=== PATIENT | female | born 1990 | race Caucasian/White ===

== ENCOUNTER 2017-10-12 13:37 | Outpatient (CLI) | payer OTHER, BC ==
[~2017-10-12] VITALS: Ht 162.6 cm; Wt 80.0 kg
[2017-10-12 14:58] LABS: MICROSCOPIC INDICATED
[2017-10-12 15:34] VITALS: BP 124/59
[2017-10-12] MEDS ORDERED: PREN1TAB60 PO (15:46)
== END 2017-10-12 16:17 | disposition home or self-care (01) ==
LOC: LDOP 13:37 → MERGE 13:37 → LDOP 16:17
PROVIDERS: ATTEND Obstetrics & Gynecology
DX: O36.8130 Decreased fetal movements, third trimester, not applicable or unspecified (principal); O30.033 Twin pregnancy, monochorionic/diamniotic, third trimester; Z3A.18 18 weeks gestation of pregnancy
CPT/HCPCS: 59025; 76810; 76815; 81001; 87086; 99201; G0463

== ENCOUNTER 2017-12-28 11:04 | Outpatient (CLI) | payer OTHER, BC ==
[~2017-12-28] VITALS: Ht 160 cm; Wt 92.0 kg
[~2017-12-28 11:04] MED LIST: PREN1TAB60 PO
[2017-12-28 11:47] LABS: MICROSCOPIC INDICATED
[2017-12-28] MEDS ORDERED: NITROFURANTOIN (MACROBID) 100 MG CAPSULE ONE (12:57)
[2017-12-28] MEDS ORDERED: NITROFURANTOIN (MACROBID) 100 MG CAPSULE PO ONE (13:00)
== END 2017-12-28 13:14 | disposition home or self-care (01) ==
LOC: LDOP 11:04
PROVIDERS: ATTEND Obstetrics & Gynecology
DX: O26.893 Other specified pregnancy related conditions, third trimester (principal); R11.10 Vomiting, unspecified; Z3A.29 29 weeks gestation of pregnancy
CPT/HCPCS: 36415; 59025; 81001; 82731; 87086; 99211; G0463

== ENCOUNTER 2018-01-15 19:52 | Outpatient (CLI) | payer BC, OTHER ==
[~2018-01-15] VITALS: Ht 160 cm; Wt 95.0 kg
[2018-01-15 20:00] VITALS: BP 131/62
[2018-01-15] MEDS ORDERED: TERBUTALINE 1 MG/ML, 1ML ONE (20:11)
[2018-01-15] MEDS ORDERED: PLEASE ENTER HEIGHT AND WEIGHT MC SCH (20:30)
[2018-01-15] MEDS ORDERED: TERBUTALINE 1 MG/ML, 1ML SQ ONE (20:30)
[2018-01-15 20:37] LABS: MICROSCOPIC INDICATED
== END 2018-01-15 23:09 | disposition home or self-care (01) ==
LOC: LDOP 19:52
PROVIDERS: ATTEND Obstetrics & Gynecology
DX: Z34.83 Encounter for supervision of other normal pregnancy, third trimester (principal); Z3A.33 33 weeks gestation of pregnancy
CPT/HCPCS: 36415; 59025; 81001; 82731; 87086; 96372; 99211; J3105; G0463

== ENCOUNTER 2018-01-31 14:44 | Outpatient (CLI) | payer OTHER ==
[2018-01-31 15:14] LABS: MICROSCOPIC INDICATED
[2018-01-31 15:21] LABS: CREATININE,URINE RANDOM 31.3 mg/dL
[2018-01-31 15:24] LABS: BASOPHILS # (AUTO) 0.02 x10^3/uL (0-0.1); BASOPHILS % (AUTO) 0 % (0-1); EOSINOPHILS # (AUTO) 0.04 x10^3/uL (0-0.4); EOSINOPHILS % (AUTO) 1 % (1-7); LYMPHOCYTES # (AUTO) 1.37 x10^3/uL (1-3.4); LYMPHOCYTES % (AUTO) 20 % (22-44); MD NO; MEAN CORPUSCULAR HEMOGLOBIN 31.6 pg (27.0-34.8); MEAN CORPUSCULAR HGB CONC 34.9 g/dL (32.4-35.8); MEAN CORPUSCULAR VOLUME 90.5 fL (80-100); MEAN PLATELET VOLUME 9.2 fL (7.4-10.4); MONOCYTES # (AUTO) 0.46 x10^3/uL (0.2-0.8); MONOCYTES % (AUTO) 7 % (2-9); NEUTROPHILS # (AUTO) 5.05 x10^3/uL (1.8-6.8); NEUTROPHILS % (AUTO) 73 % (42-75); PLATELET COUNT 136 x10^3/uL (130-400); RED BLOOD COUNT 3.24 x10^6/uL (3.82-5.3); RED CELL DISTRIBUTION WIDTH 17.3 % (9.6-15.2)
[2018-01-31 15:36] LABS: CHLORIDE 108 mmol/L (98-107)
[2018-01-31 15:37] LABS: ALANINE AMINOTRANSFERASE 18 U/L (12-78); ALBUMIN 2.5 g/dL (3.4-5.0); ALKALINE PHOSPHATASE 137 U/L (45-117); ANION GAP 11 mmol/L (5-15); BILIRUBIN, DIRECT < 0.1 mg/dL (0.1-0.2); BILIRUBIN,TOTAL 0.3 mg/dL (0.2-1.0); CALCIUM 8.1 mg/dL (8.5-10.1); CREATININE 0.48 mg/dL (0.55-1.02)
[2018-01-31 15:44] VITALS: BP 146/88
== END 2018-01-31 18:20 | disposition home or self-care (01) ==
LOC: LDOP 14:44
PROVIDERS: ATTEND Obstetrics & Gynecology
DX: O13.3 Gestational [pregnancy-induced] hypertension without significant proteinuria, third trimester (principal); Z3A.34 34 weeks gestation of pregnancy; Z87.891 Personal history of nicotine dependence
CPT/HCPCS: 36415; 59025; 80053; 81001; 81050; 82248; 82570; 84156; 84550; 85025; 87086; 99211; G0463